=== PATIENT | female | born 1970 | race Caucasian/White ===

== ENCOUNTER → 2019-01-04 | Day surgery (SDC) | payer BC ==
[~2019-01-04] MED LIST: ACETAMINOPHEN 1,000 MG/100 ML BTL IV ONE; BUPIVACAINE 0.5% W/EPI MPF 30 ML VIAL SQ ONE; CEFAZOLIN 2 Gram 2 GM/50 ML BAG IVPB ONE; FAMOTIDINE 20MG TABLET PO ONE; HYDROCODONE/APAP 7.5/325MG TABLET PO ONE; KETAMINE HCL 100MG/1ML VIAL INJ ONE; LIDOCAINE 2% MDV (20MG/ML) 20ML VIAL IV ONE; MECLIZINE 25 MG TABLET PO ONE; METHYLPREDNISOLONE 40MG/VIAL IU ONE; METOCLOPRAMIDE 10 MG TABLET PO ONE; MORPHINE SULFATE 4 MG/ML VIAL ONE; MORPHINE SULFATE 5 MG/ML PFS IVP ONE; PROPOFOL 10 MG/ML VIAL IV ONE; RINGERS SOLUTION,LACTATED 1,000 ML IV ONE
--- NOTE | 2019-01-05 11:30 | Operative Note ---
DATE OF SURGERY: 01/04/2019 PREOPERATIVE DIAGNOSIS: Internal derangement of the right knee. POSTOPERATIVE DIAGNOSES: 1. Grade 3 chondromalacia of patella. 2. Grade 3 chondromalacia of medial femoral condyle. OPERATION: Right knee arthroscopy with chondroplasty of the patella and medial femoral condyle. STAFF SURGEON: Toney Demarco MD ANESTHESIA: General. PREPARATION: Chloraprep. INDIVIDUAL CONSIDERATIONS: None. PROCEDURE: The patient was taken to the operating room and placed supine on the operating room table. The patient had a successful induction of a general anesthetic. The right lower extremity was prepped and draped in the usual fashion. The patient had a superolateral inflow cannula placed. Skin was infiltrated with 0.5% Marcaine with epinephrine prior. A clear effusion was drained. An inferomedial and an inferolateral portal were made in a similar fashion. The arthroscope was introduced through the inferolateral portal up into the pouch. Patellofemoral joint showed grade 3 change centrally on the patella but the notch looked good. No loose bodies were seen in the pouch or either gutter. In the medial compartment, she had peeling cartilage to the medial femoral condyle just lateral to the midline centered at 45 degrees about the size of an elongated quarter. This was debrided back to stable cartilage, luckily not down to bone. The meniscus and tibial plateau were normal. In the notch, the cruciates were normal and lateral compartment structures were normal. The knee was then irrigated with saline to remove loose floating debris. Portals were closed with rosa, and 20 mL of 0.5% Marcaine with epinephrine along with 4 mg of morphine and 40 mg of Depo-Medrol were injected into the knee. A sterile bulky compressive dressing was applied. The patient tolerated the procedure well. Needle and sponge counts were correct. Estimated blood loss was minimal. She was taken back to recovery in good condition. There were no complications. [facility]
== END | disposition home or self-care (01) ==
LOC: SUR 11:44
PROVIDERS: ATTEND Orthopaedic Surgery
DX: M22.41 Chondromalacia patellae, right knee (principal); I10 Essential (primary) hypertension; E78.00 Pure hypercholesterolemia, unspecified; K21.9 Gastro-esophageal reflux disease without esophagitis
CPT/HCPCS: 29877; 01400; J0690; J2270; J3490; J1030; J7120